=== PATIENT | female | born 1955 | race Native Hawaiian/Other Pacific Islander ===

== ENCOUNTER 2016-12-02 13:47 | Outpatient (CLI) | payer BC | END 2016-12-02 19:37 | disposition home or self-care (01) | LOC: RAD 13:47 | DX: M79.642 Pain in left hand (principal) ==

== ENCOUNTER 2016-12-18 09:47 | Outpatient (CLI) | payer BC | END 2016-12-18 19:37 | disposition home or self-care (01) | LOC: RAD 09:47 | DX: J40 Bronchitis, not specified as acute or chronic (principal) ==

== ENCOUNTER 2016-12-21 07:09 | Emergency (ER) | payer BC ==
[~2016-12-21] VITALS: Ht 162.6 cm; Wt 63.5 kg
[2016-12-21 07:50] LABS: PLATELET COUNT 301 K/uL (152-353)
[2016-12-21 08:12] LABS: POTASSIUM 3.9 mmol/L (3.6-5.2); SODIUM 135 mmol/L (136-145)
[2016-12-21 09:15] VITALS: BP 161/86; TEMP 98.4
== END 2016-12-21 10:03 | disposition home or self-care (01) ==
LOC: ED 07:09
PROVIDERS: Emergency Medicine
DX: J20.9 Acute bronchitis, unspecified (principal)
CPT/HCPCS: 36415; 80053; 85027; 87804; 93005; 96365; 96375; 99284; J0696; J2930

== ENCOUNTER 2017-01-02 06:03 | Emergency (ER) | payer BC ==
[~2017-01-02] VITALS: Ht 162.6 cm; Wt 65.8 kg
[2017-01-02 06:15] VITALS: TEMP 98.1
[2017-01-02 06:58] LABS: PLATELET COUNT 369 K/uL (152-353)
[2017-01-02 07:03] LABS: POTASSIUM 4.1 mmol/L (3.6-5.2); SODIUM 135 mmol/L (136-145)
[2017-01-02 10:50] VITALS: BP 117/60
== END 2017-01-02 10:50 | disposition home or self-care (01) ==
LOC: ED 06:03
PROVIDERS: Emergency Medicine
DX: R09.1 Pleurisy (principal)
CPT/HCPCS: 36415; 80053; 81000; 82150; 82550; 83690; 84484; 85027; 93005; 96374; 96375; 99284; J2270; J2405; Q9963

== ENCOUNTER 2017-01-03 14:20 | Outpatient (CLI) | payer BC | END 2017-01-03 19:10 | disposition home or self-care (01) | LOC: RAD 14:20 | DX: R09.1 Pleurisy (principal); M54.9 Dorsalgia, unspecified ==

== ENCOUNTER 2017-05-05 12:58 | Outpatient (CLI) | payer BC | END 2017-05-05 19:24 | disposition home or self-care (01) | LOC: RAD 12:58 | DX: M54.2 Cervicalgia (principal) ==

== ENCOUNTER 2018-11-10 09:20 | Outpatient (CLI) | payer BC | END 2018-11-10 19:14 | disposition home or self-care (01) | LOC: CT 09:20 | DX: R05 Cough (principal) ==

== ENCOUNTER 2019-06-08 16:04 | Emergency (ER) | payer BC ==
[~2019-06-08] VITALS: Ht 162.6 cm; Wt 68.0 kg
[2019-06-08 16:09] VITALS: TEMP 98.1
[2019-06-08 16:31] LABS: PLATELET COUNT 292 K/uL (152-353)
[2019-06-08 16:39] LABS: POTASSIUM 3.8 mmol/L (3.6-5.2)
[2019-06-08 18:00] VITALS: BP 148/69
== END 2019-06-08 18:27 | disposition home or self-care (01) ==
LOC: ED 16:04
PROVIDERS: Family Medicine
DX: J45.901 Unspecified asthma with (acute) exacerbation (principal); E11.65 Type 2 diabetes mellitus with hyperglycemia
CPT/HCPCS: 80053; 85027; 93005; 94664; 96372; 99283; J2930

== ENCOUNTER 2019-07-01 09:50 | Outpatient (CLI) | payer BC | END 2019-07-01 23:22 | disposition home or self-care (01) | LOC: MAMMO 09:50 | DX: Z12.31 Encounter for screening mammogram for malignant neoplasm of breast (principal); J30.9 Allergic rhinitis, unspecified ==

== ENCOUNTER 2019-10-27 11:41 | Outpatient (CLI) | payer BC | END 2019-10-27 20:24 | disposition home or self-care (01) | LOC: RAD 11:41 | DX: R07.89 Other chest pain (principal); M25.511 Pain in right shoulder ==

== ENCOUNTER 2020-02-08 02:42 | Emergency (ER) | payer BC ==
[~2020-02-08] VITALS: Ht 162.6 cm; Wt 68.0 kg
[2020-02-08 03:45] LABS: PLATELET COUNT 265 K/uL (152-353)
[2020-02-08 04:04] LABS: POTASSIUM 3.8 mmol/L (3.6-5.2)
[2020-02-08 06:40] VITALS: BP 162/65; TEMP 99
== END 2020-02-08 06:40 | disposition home or self-care (01) ==
LOC: ED 02:42
PROVIDERS: Family Medicine
DX: K80.80 Other cholelithiasis without obstruction (principal); K52.89 Other specified noninfective gastroenteritis and colitis
CPT/HCPCS: 36415; 80053; 81000; 83605; 85027; 96360; 96365; 96375; 99284; J0696; J1885; J2405; J3490; Q9963

== ENCOUNTER 2020-09-19 07:31 | Day surgery (SDC) | payer BC ==
[2020-09-18 09:41] LABS: PLATELET COUNT 201 K/uL (152-353)
[2020-09-18 09:55] LABS: POTASSIUM 4.4 mmol/L (3.6-5.2)
[~2020-09-19] VITALS: Ht 33 cm; Wt 0.5 kg
== END 2020-09-19 12:26 | disposition home or self-care (01) ==
LOC: OR 07:31
PROVIDERS: ATTEND Student in an Organized Health Care Education/Training Program
PROC: 0FT44ZZ Resection of Gallbladder, Percutaneous Endoscopic Approach (ICD-10-PCS; principal; 2020-09-19)
DX: K80.20 Calculus of gallbladder without cholecystitis without obstruction (principal); E11.9 Type 2 diabetes mellitus without complications; Z79.84 Long term (current) use of oral hypoglycemic drugs
CPT/HCPCS: 80053; 85027; 93005; J0132; J0690; J1100; J1170; J2250; J2370; J2405; J2704; J2795; J3490

== ENCOUNTER 2020-12-14 08:01 | Outpatient (CLI) | payer BC ==
[~2020-12-14] VITALS: Ht 162.6 cm; Wt 77.6 kg
== END 2020-12-14 21:46 | disposition home or self-care (01) ==
LOC: NM 08:01
PROVIDERS: ATTEND Internal Medicine Cardiovascular Disease
DX: R07.9 Chest pain, unspecified (principal)
CPT/HCPCS: A9500; J2785

== ENCOUNTER 2021-01-04 11:13 | Outpatient (CLI) | payer BC | END 2021-01-04 22:20 | disposition home or self-care (01) | LOC: RAD 11:13 | PROVIDERS: ATTEND Internal Medicine | DX: R09.1 Pleurisy (principal) ==

== ENCOUNTER 2021-04-02 10:55 | Emergency (ER) | payer BC ==
[~2021-04-02] VITALS: Ht 162.6 cm; Wt 60.3 kg
[2021-04-02 10:55] VITALS: TEMP 98.7
[2021-04-02 11:23] LABS: PLATELET COUNT 200 K/uL (152-353)
[2021-04-02 11:29] LABS: POTASSIUM 4.3 mmol/L (3.6-5.2); SODIUM 138 mmol/L (136-145)
[2021-04-02 11:44] LABS: PARTIAL THROMBOPLASTIN TIME 22.7 SECONDS (24.5-33.6)
[2021-04-02 12:48] VITALS: BP 147/62
== END 2021-04-02 12:48 | disposition home or self-care (01) ==
LOC: ED 10:55
PROVIDERS: Emergency Medicine
DX: R07.89 Other chest pain (principal); Z91.81 History of falling
CPT/HCPCS: 36415; 80053; 82550; 83735; 83880; 84484; 85027; 85379; 85610; 85730; 93005; 96374; 99284; J1885

== ENCOUNTER 2021-04-04 07:57 | Outpatient (CLI) | payer BC | END 2021-04-04 22:08 | disposition home or self-care (01) | LOC: US 07:57 | PROVIDERS: ATTEND Internal Medicine | DX: R09.89 Other specified symptoms and signs involving the circulatory and respiratory systems (principal) ==

== ENCOUNTER 2022-11-01 05:43 | Emergency (ER) | payer BC ==
[~2022-11-01] VITALS: Ht 162.6 cm; Wt 60.3 kg
[2022-11-01 05:43] VITALS: TEMP 92.9
== END 2022-11-01 07:10 | disposition expired ==
LOC: ED 05:47
DX: I46.9 Cardiac arrest, cause unspecified (principal)
CPT/HCPCS: 92950; 96374; 99284; J0171